=== PATIENT | male | born 1950 | race Hispanic/Latino ===

== ENCOUNTER 2018-05-15 11:43 | Inpatient (IN) | payer MEDICARE ==
[2018-05-15 11:43] VITALS: BMI 25.7
--- NOTE | 2018-05-15 11:58 | C.PDOC ---
History Of Present Illness 67 y/o male,w/PMhx of HTN and diabetes, brought to ER by ambulance for brief syncopal episode which occurred today. Patient states that he was waiting with other people in the sun outside his doctor's office. Patient reports that he experienced photophobia and he put on his shades. He notes that he began feeling dizzy and he kneeled down on one knee. He thinks he may have blacked out for few seconds. Afterwards,he was picked up by EMS and brought to the ER. he notes that he has mild abdominal pain and diarrhea. Denies having fever, chills, headache, dizziness, neck pain, CP, and SOB. 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 He is taking abx and he applies daily dressings. Time Seen by Provider: 05/15/18 11:54 Chief Complaint (Nursing): Syncope History Per: Patient History/Exam Limitations: no limitations Onset/Duration Of Symptoms: Hrs Current Symptoms Are (Timing): Gone Severity: Moderate Past Medical History Reviewed: Historical Data, Nursing Documentation, Vital Signs Vital Signs: Last Vital Signs Temp Pulse Resp BP 129/72 05/15/18 11:49 Pulse Ox 98 05/15/18 11:49 - Medical History PMH: Anxiety, Depression Denies: COPD (DENIES 05/15/18), HTN (DENIES 05/15/18), Chronic Kidney Disease Other Surgeries: Hx of surgeries - [facility] Procedures ANGIOPLASTY OF OTHER NON-CORONARY VESSEL(S) (11/28/14) PROCEDURE ON SINGLE VESSEL (11/28/14) Family History: States: No Known Family Hx - Social History Hx Tobacco Use: No Hx Alcohol Use: No Hx Substance Use: No - Immunization History Hx Tetanus Toxoid Vaccination: No Hx Influenza Vaccination: No Hx Pneumococcal Vaccination: No Review Of Systems Except As Marked, All Systems Reviewed And Found Negative. Constitutional: Negative for: Fever, Chills Cardiovascular: Negative for: Chest Pain Respiratory: Negative for: Shortness of Breath Gastrointestinal: Positive for: Abdominal Pain, Diarrhea. Negative for: Nausea, Vomiting Musculoskeletal: Negative for: Neck Pain Neurological: Positive for: Dizziness (currently resolved). Negative for: Headache Physical Exam - Physical Exam Appears: Non-toxic, No Acute Distress, Other (awake,alert,cooperative, conversational) Skin: Normal Color, Warm, Dry Head: Atraumatic, Normacephalic Eye(s): bilateral: Normal Inspection Nose: Normal Oral Mucosa: Dry (mildly dry) Throat: Normal, No Erythema, No Exudate Neck: Supple Chest: Symmetrical Cardiovascular: Rhythm Regular Respiratory: Normal Breath Sounds, No Rales, No Rhonchi, No Wheezing Gastrointestinal/Abdominal: Soft, Tenderness (diffuse tenderness), No Guarding, No Rebound Extremity: Normal ROM, Other (no pitting edema,right foot wrapped in dressing) Neurological/Psych: Oriented x3, Normal Speech, Normal Cranial Nerves (1-12 intact), Normal Motor, Normal Sensation ED Course And Treatment - Laboratory Results Result Diagrams: 05/15/18 13:01 05/15/18 13:01 ECG: Interpreted By Me, Viewed By Me Interpretation Of ECG: Sinus Bradycardia with incomplete RBBB Rate From EC O2 Sat by Pulse Oximetry: 98 (RA) Pulse Ox Interpretation: Normal Medical Decision Making Medical Decision Making: Plan: --Labs --EKG --CT-Head Updates: 14:10 Case discussed with patient's PMD . requested for patient to be admitted under Dr.Deepak Spears. Case discussed with who stated that he does not want patient to be admitted under his service. states that he can be put on consult. Case discussed with Dr.J Macedo.Dr. Jovan Macedo accepted the admission. Disposition Discussed With .: Sue Macedo - Disposition Disposition: HOSPITALIZED Disposition Time: 14:13 Condition: GUARDED - Clinical Impression Clinical Impression: Dizziness, Syncope - Scribe Statement The provider has reviewed the documentation as recorded by the Jean Orozco Provider Attestation: All medical record entries made by the Arleenibsalty were at my direction and personally dictated by me. I have reviewed the chart and agree that the record accurately reflects my personal performance of the history, physical exam, medical decision making, and the department course for this patient. I have also personally directed, reviewed, and agree with the discharge instructions and disposition. Decision To Admit - Pt Status Changed To: Hospital Disposition Of: Observation - . Bed Request Type: Telemetry Admitting Physician: Sue Macedo Patient Diagnosis: Dizziness, Syncope
[2018-05-15 13:09] LABS: BASO # 0.1 K/uL (0.0-0.2); BASO % 0.6 % (0.0-2.0); EOS # 0.1 K/uL (0.0-0.7); EOS % 1.6 % (0.0-4.0); HEMOGLOBIN 14.7 g/dL (12.0-18.0); LYMPH # 1.6 K/uL (1.0-4.3); LYMPH % 19.2 % (20.0-40.0); MEAN CELL VOLUME 89.4 fL (80.0-94.0); MEAN CORPUSCULAR HEMOGLOBIN 30.8 pg (27.0-31.0); MEAN CORPUSCULAR HGB CONC 34.4 g/dL (33.0-37.0); MEAN PLATELET VOLUME 9.1 fL (7.2-11.7); MONO # 0.6 K/uL (0.0-0.8); MONO % 7.1 % (0.0-10.0); NEUT # 6.1 K/uL (1.8-7.0); NEUT % 71.5 % (50.0-75.0); RBC 4.78 Mil/uL (4.40-5.90); RED CELL DISTRIBUTION WIDTH 13.4 % (11.5-14.5); WHITE BLOOD COUNT 8.6 K/uL (4.8-10.8)
[2018-05-15 13:30] LABS: ALB/GLOB RATIO 1.8 (1.0-2.1); ALBUMIN 4.3 g/dL (3.5-5.0); ALT/SGPT 20 U/L (21-72); AST/SGOT 24 U/L (17-59); BLOOD UREA NITROGEN 15 mg/dL (9-20); CALCIUM 9.2 mg/dl (8.6-10.4); GFR NON-AFRICAN AMERICAN > 60
[2018-05-15 13:40] LABS: CK-MB 1.15 ng/mL (0.0-3.38)
--- NOTE | 2018-05-15 16:35 | CT ---
Date of service: 05/15/2018 PROCEDURE: CT HEAD WITHOUT CONTRAST. HISTORY: R/O Bleed COMPARISON: None available. TECHNIQUE: Axial computed tomography images were obtained through the head/brain without intravenous contrast. Radiation dose: Total exam DLP = 1143.86 mGy-cm. This CT exam was performed using one or more of the following dose reduction techniques: Automated exposure control, adjustment of the mA and/or kV according to patient size, and/or use of iterative reconstruction technique. FINDINGS: HEMORRHAGE: No intracranial hemorrhage. BRAIN: Diffuse atrophy with prominence of the ventricles and sulci noted. no mass effect or edema. Intracranial atherosclerosis. Painting-white matter differentiation appears intact. Please note that MRI with diffusion imaging is more sensitive in the detection of acute ischemic event. VENTRICLES: No hydrocephalus. CALVARIUM: Unremarkable. PARANASAL SINUSES: Unremarkable as visualized. No significant inflammatory changes. MASTOID AIR CELLS: Unremarkable as visualized. No inflammatory changes. 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 IMPRESSION: No acute intracranial pathology identified. Additional findings as above.
--- NOTE | 2018-05-15 17:09 | CP.PCM.CON ---
History of Present Illness - History of Present Illness History of Present Illness: Podiatry Consult note: Dr. Amador 67 year old male with PMHx of HTN, DM was seen and evaluated at [facility] for right foot chronic ulceration. Patient states that he was brought in by an ambulance for a breif syncopal episode which occured at his primary care doctor's office Patient states that he also has a small ulcer on the right foot. States that he has been following up with Dr. Lipscomb at [place]. States that he was given Ciprofloxacin recently which he completed on Tuesday. Patient denies of having any pain to the right foot. Reports that his niece has been changing the dressing on the foot with santyl. Denies of having any recent F/N/V/C/SOB/CP/headache. No other pedal complains at this time. PMHx: HTN, DM PSHx: Angioplasty, Right foot 3rd digit amputation Allergies: Seasonal, NKDA SHx: Denies smoking, EtOH or illicit drug usage Review of Systems - Constitutional Constitutional: As Per HPI Past Patient History - Infectious Disease Hx of Infectious Diseases: None - Past Medical History & Family History Past Medical History?: Yes - Past Social History Smoking Status: Former Smoker - CARDIAC Hx Hypertension: No (DENIES 05/15/18) - PULMONARY Hx Chronic Obstructive Pulmonary Disease (COPD): No (DENIES 05/15/18) - NEUROLOGICAL Hx Neurological Disorder: No - HEENT Hx HEENT Problems: Yes Hx Blind: Yes (R eye d/t trauma in 1976) Hx Glaucoma: Yes (L eye) - RENAL Hx Chronic Kidney Disease: No - ENDOCRINE/METABOLIC Hx Endocrine Disorders: No - HEMATOLOGICAL/ONCOLOGICAL Hx Blood Disorders: No - INTEGUMENTARY Hx Dermatological Problems: No - MUSCULOSKELETAL/RHEUMATOLOGICAL Hx Musculoskeletal Disorders: Yes (chronic neck pain) Hx Falls: Yes - GASTROINTESTINAL Hx Gastrointestinal Disorders: No - GENITOURINARY/GYNECOLOGICAL Hx Genitourinary Disorders: No - PSYCHIATRIC Hx Anxiety: Yes Hx Depression: Yes Hx Substance Use: No - SURGICAL HISTORY Hx Surgeries: Yes Hx Amputation: Yes (3rd toe of R foot) - ANESTHESIA Hx Anesthesia: Yes Hx Anesthesia Reactions: No Hx Malignant Hyperthermia: No Meds Allergies/Adverse Reactions: Allergies Allergy/AdvReac Type Severity Reaction Status Date / Time barley Allergy Verified 05/15/18 11:48 milk Allergy Verified 05/15/18 11:48 Physical Exam - Constitutional Appears: Well, Non-toxic, No Acute Distress - Extremities Exam Additional comments: VASC: DP pulses are faintly palpable, PT pulses are 1/4, Cap refill time: < 3 sec to all digits, Temp gradient: warm to cool from proximal to distal on the left and warm to warm on the left, no pitting or non-pitting edema noted DERM: 2 small open lesions measuring approx 0.7 cm x 0.3 cm x 0.1 cm on the anterior medial aspect of the right ankle superior to anterior tibial tendon, wound base is necro-grannular, no active drainage, no malodor, no tunneling, no undermining, diffuse erythema noted on the right foot, superficial hallux epidermal shedding with superficial bleeding NEURO: Protective sensation grossly intact ORTHO: MMT: 5/5 in all 4 direction, no pain on palpation of the wound on the right foot - Neurological Exam Neurological exam: Alert, Oriented x3 - Psychiatric Exam Psychiatric exam: Normal Affect, Normal Mood Results - Vital Signs Recent Vital Signs: Last Vital Signs Temp 87.6 F L 05/15/18 15:34 Pulse 90 05/15/18 15:34 Resp 20 05/15/18 15:34 BP 164/83 H 05/15/18 15:34 Pulse Ox 98 05/15/18 15:34 - Labs Result Diagrams: 05/15/18 13:01 05/15/18 13:01 Labs: Laboratory Results - last 24 hr 05/15/18 05/15/18 05/15/18 11:46 13:01 13:01 WBC 8.6 RBC 4.78 Hgb 14.7 D Hct 42.7 MCV 89.4 MCH 30.8 MCHC 34.4 RDW 13.4 Plt Count 205 MPV 9.1 Neut % (Auto) 71.5 Lymph % (Auto) 19.2 L [place] % (Auto) 7.1 Eos % (Auto) 1.6 Baso % (Auto) 0.6 Neut # (Auto) 6.1 Lymph # (Auto) 1.6 [place] # (Auto) 0.6 Eos # (Auto) 0.1 Baso # (Auto) 0.1 Sodium 140 Potassium 4.2 Chloride 105 Carbon Dioxide 26 Anion Gap 13 BUN 15 Creatinine 0.9 Est GFR ( Amer) > 60 Est GFR (Non-Af Amer) > 60 POC Glucose (mg/dL) 160 H Random Glucose 121 H D Calcium 9.2 Total Bilirubin 0.9 AST 24 ALT 20 L D Alkaline Phosphatase 117 Total Creatine Kinase 48 L CK-MB (Mass) 1.15 Troponin I < 0.0120 Total Protein 6.8 Albumin 4.3 Globulin 2.4 Albumin/Globulin Ratio 1.8 Influenza Typ A,B (EIA) 05/15/18 13:59 WBC RBC Hgb Hct MCV MCH MCHC RDW Plt Count MPV Neut % (Auto) Lymph % (Auto) [place] % (Auto) Eos % (Auto) Baso % (Auto) Neut # (Auto) Lymph # (Auto) [place] # (Auto) Eos # (Auto) Baso # (Auto) Sodium Potassium Chloride Carbon Dioxide Anion Gap BUN Creatinine Est GFR ( Amer) Est GFR (Non-Af Amer) POC Glucose (mg/dL) Random Glucose Calcium Total Bilirubin AST ALT Alkaline Phosphatase Total Creatine Kinase CK-MB (Mass) Troponin I Total Protein Albumin Globulin Albumin/Globulin Ratio Influenza Typ A,B (EIA) Negative for flu a/b Assessment & Plan - Assessment and Plan (Free Text) Assessment: 67 year old male with PMHx of HTN, DM was evaluated for right foot chronic ulceration Plan: Patient seen and evaluated Discussed plan with attending Dr. Amador No leukocytosis Foot x-rays ordered Right foot cultures taken - pending KAITY/PVR ordered - pending Wound cleaned and dressing applied using betadine, DSD Continue abx as per primary Thank you for the podiatry consult and allowing to take part in patient care Podiatry to follow patient while in-house - Date & Time Date: 05/15/18 Time: 17:19
--- NOTE | 2018-05-15 19:12 | CP.PCM.HP ---
Past Patient History - Infectious Disease Hx of Infectious Diseases: None - Past Medical History & Family History Past Medical History?: Yes - Past Social History Smoking Status: Former Smoker - CARDIAC Hx Hypertension: No (DENIES 05/15/18) - PULMONARY Hx Chronic Obstructive Pulmonary Disease (COPD): No (DENIES 05/15/18) - NEUROLOGICAL Hx Neurological Disorder: No - HEENT Hx HEENT Problems: Yes Hx Blind: Yes (R eye d/t trauma in 1976) Hx Glaucoma: Yes (L eye) - RENAL Hx Chronic Kidney Disease: No - ENDOCRINE/METABOLIC Hx Endocrine Disorders: No - HEMATOLOGICAL/ONCOLOGICAL Hx Blood Disorders: No - INTEGUMENTARY Hx Dermatological Problems: No - MUSCULOSKELETAL/RHEUMATOLOGICAL Hx Musculoskeletal Disorders: Yes (chronic neck pain) Hx Falls: Yes - GASTROINTESTINAL Hx Gastrointestinal Disorders: No - GENITOURINARY/GYNECOLOGICAL Hx Genitourinary Disorders: No - PSYCHIATRIC Hx Anxiety: Yes Hx Depression: Yes Hx Substance Use: No - SURGICAL HISTORY Hx Surgeries: Yes Hx Amputation: Yes (3rd toe of R foot) - ANESTHESIA Hx Anesthesia: Yes Hx Anesthesia Reactions: No Hx Malignant Hyperthermia: No Meds Allergies/Adverse Reactions: Allergies Allergy/AdvReac Type Severity Reaction Status Date / Time barley Allergy Verified 05/15/18 11:48 milk Allergy Verified 05/15/18 11:48 Physical Exam - Constitutional Appears: Well - Head Exam Head Exam: ATRAUMATIC, NORMAL INSPECTION, NORMOCEPHALIC - Eye Exam Eye Exam: EOMI, Normal appearance, PERRL Pupil Exam: NORMAL ACCOMODATION, PERRL - ENT Exam ENT Exam: Mucous Membranes Moist, Normal Exam - Neck Exam Neck exam: Positive for: Normal Inspection - Respiratory Exam Respiratory Exam: Decreased Breath Sounds - Cardiovascular Exam Cardiovascular Exam: REGULAR RHYTHM, +S1, +S2 - GI/Abdominal Exam GI & Abdominal Exam: Diminished Bowel Sounds, Soft - Rectal Exam Rectal Exam: Deferred Results - Vital Signs Recent Vital Signs: Last Vital Signs Temp 87.6 F L 05/15/18 15:34 Pulse 90 05/15/18 15:34 Resp 20 05/15/18 15:34 BP 164/83 H 05/15/18 15:34 Pulse Ox 98 05/15/18 15:34 - Labs Result Diagrams: 05/15/18 13:01 05/15/18 13:01 Labs: Laboratory Results - last 24 hr 05/15/18 05/15/1805/15/19 11:46 13:01 13:01 WBC 8.6 RBC 4.78 Hgb 14.7 D Hct 42.7 MCV 89.4 MCH 30.8 MCHC 34.4 RDW 13.4 Plt Count 205 MPV 9.1 Neut % (Auto) 71.5 Lymph % (Auto) 19.2 L [place] % (Auto) 7.1 Eos % (Auto) 1.6 Baso % (Auto) 0.6 Neut # (Auto) 6.1 Lymph # (Auto) 1.6 [place] # (Auto) 0.6 Eos # (Auto) 0.1 Baso # (Auto) 0.1 Sodium 140 Potassium 4.2 Chloride 105 Carbon Dioxide 26 Anion Gap 13 BUN 15 Creatinine 0.9 Est GFR ( Amer) > 60 Est GFR (Non-Af Amer) > 60 POC Glucose (mg/dL) 160 H Random Glucose 121 H D Calcium 9.2 Total Bilirubin 0.9 AST 24 ALT 20 L D Alkaline Phosphatase 117 Total Creatine Kinase 48 L CK-MB (Mass) 1.15 Troponin I < 0.0120 Total Protein 6.8 Albumin 4.3 Globulin 2.4 Albumin/Globulin Ratio 1.8 Influenza Typ A,B (EIA) 05/15/18 05/15/18 13:59 17:09 WBC RBC Hgb Hct MCV MCH MCHC RDW Plt Count MPV Neut % (Auto) Lymph % (Auto) [place] % (Auto) Eos % (Auto) Baso % (Auto) Neut # (Auto) Lymph # (Auto) [place] # (Auto) Eos # (Auto) Baso # (Auto) Sodium Potassium Chloride Carbon Dioxide Anion Gap BUN Creatinine Est GFR ( Amer) Est GFR (Non-Af Amer) POC Glucose (mg/dL) 136 H Random Glucose Calcium Total Bilirubin AST ALT Alkaline Phosphatase Total Creatine Kinase CK-MB (Mass) Troponin I Total Protein Albumin Globulin Albumin/Globulin Ratio Influenza Typ A,B (EIA) Negative for flu a/b
[2018-05-15 20:24] LABS: CK-MB 1.14 ng/mL (0.0-3.38)
[2018-05-15] MEDS ORDERED: Latanoprost 2.5 ml Opht Soln OS SCH (22:00)
[2018-05-15] MEDS: Piperacillin/Tazobact 3.375 GM in Sodium Chloride 100 ML IVPB SCH (22:17)
[2018-05-15] MEDS ORDERED: Glucagon Recombinant 1 mg Inj IM PRN (23:40)
[2018-05-15] MEDS ORDERED: Dextrose 50% SYRINGE Inj (50 ml) IV PRN (23:40)
[2018-05-16] MEDS: Piperacillin/Tazobact 3.375 GM in Sodium Chloride 100 ML IVPB SCH ×3 (05:22→22:03)
[2018-05-16 07:01] LABS: CK-MB 1.09 ng/mL (0.0-3.38)
--- NOTE | 2018-05-16 07:14 | CP.PCM.CON ---
History of Present Illness - History of Present Illness History of Present Illness: CONSULTATION DICTATED RECURRENT SYNCOPE EEG/MRI PT CARDIO TO SEE FOR CARDIAC CAUSE Past Patient History - Infectious Disease Hx of Infectious Diseases: None - Past Medical History & Family History Past Medical History?: Yes - Past Social History Smoking Status: Former Smoker - CARDIAC Hx Hypertension: No (DENIES 05/15/18) - PULMONARY Hx Chronic Obstructive Pulmonary Disease (COPD): No (DENIES 05/15/18) - NEUROLOGICAL Hx Neurological Disorder: No - HEENT Hx HEENT Problems: Yes Hx Blind: Yes (R eye d/t trauma in 1976) Hx Glaucoma: Yes (L eye) - RENAL Hx Chronic Kidney Disease: No - ENDOCRINE/METABOLIC Hx Endocrine Disorders: No - HEMATOLOGICAL/ONCOLOGICAL Hx Blood Disorders: No - INTEGUMENTARY Hx Dermatological Problems: No - MUSCULOSKELETAL/RHEUMATOLOGICAL Hx Musculoskeletal Disorders: Yes (chronic neck pain) Hx Falls: Yes - GASTROINTESTINAL Hx Gastrointestinal Disorders: No - GENITOURINARY/GYNECOLOGICAL Hx Genitourinary Disorders: No - PSYCHIATRIC Hx Anxiety: Yes Hx Depression: Yes Hx Substance Use: No - SURGICAL HISTORY Hx Surgeries: Yes Hx Amputation: Yes (3rd toe of R foot) - ANESTHESIA Hx Anesthesia: Yes Hx Anesthesia Reactions: No Hx Malignant Hyperthermia: No Meds Allergies/Adverse Reactions: Allergies Allergy/AdvReac Type Severity Reaction Status Date / Time barley Allergy Verified 05/15/18 11:48 milk Allergy Verified 05/15/18 11:48 - Medications Medications: Current Medications Alprazolam (Xanax) 1 mg PO BID PRN PRN Reason: Anxiety Aspirin (Ecotrin) 81 mg PO DAILY GORDON Ciprofloxacin (Cipro) 500 mg PO BID GORDON; Protocol Dextrose (Dextrose 50% Inj) 0 ml IV STAT PRN; Protocol PRN Reason: Hypoglycemia Protocol Dextrose (Glutose 15) 0 gm PO ONCE PRN; Protocol PRN Reason: Hypoglycemia Protocol Enoxaparin Sodium (Lovenox) 40 mg SC DAILY GORDON Glucagon (Glucagen Diagnostic Kit) 0 mg IM STAT PRN; Protocol PRN Reason: Hypoglycemia Protocol Piperacillin Sod/Tazobactam (Sod 3.375 gm/ Sodium Chloride) 100 mls @ 200 mls/hr IVPB Q8H GORDON; Protocol Last Admin: 05/16/18 05:22 Dose: 200 mls/hr Dextrose (Dextrose 5% In Water 1000 Ml) 1,000 mls @ 0 mls/hr IV .Q0M PRN; Protocol PRN Reason: Hypoglycemia Protocol Insulin Aspart (Novolog) 0 unit SC ACHS GORDON; Protocol Latanoprost (Xalatan Opht) 0 ml OS HS GORDON Last Admin: 05/15/18 22:17 Dose: 2.5 ml Metformin HCl (Glucophage) 500 mg PO BID GORDON Methylprednisolone (Medrol) 4 mg PO BID GORDON Tamsulosin HCl (Flomax) 0.8 mg PO HS GORDON Last Admin: 05/15/18 22:16 Dose: 0.8 mg Results - Vital Signs Recent Vital Signs: Last Vital Signs Temp 97.5 F L 05/16/18 05:21 Pulse 71 05/16/18 05:21 Resp 20 05/16/18 05:21 BP 156/81 H 05/16/18 05:21 Pulse Ox 99 05/16/18 05:21 - Labs Result Diagrams: 05/15/18 13:01 05/15/18 13:01 Labs: Laboratory Results - last 24 hr 05/15/18 05/15/18 05/15/18 11:46 13:01 13:01 WBC 8.6 RBC 4.78 Hgb 14.7 D Hct 42.7 MCV 89.4 MCH 30.8 MCHC 34.4 RDW 13.4 Plt Count 205 MPV 9.1 Neut % (Auto) 71.5 Lymph % (Auto) 19.2 L [place] % (Auto) 7.1 Eos % (Auto) 1.6 Baso % (Auto) 0.6 Neut # (Auto) 6.1 Lymph # (Auto) 1.6 [place] # (Auto) 0.6 Eos # (Auto) 0.1 Baso # (Auto) 0.1 Sodium 140 Potassium 4.2 Chloride 105 Carbon Dioxide 26 Anion Gap 13 BUN 15 Creatinine 0.9 Est GFR ( Amer) > 60 Est GFR (Non-Af Amer) > 60 POC Glucose (mg/dL) 160 H Random Glucose 121 H D Calcium 9.2 Total Bilirubin 0.9 AST 24 ALT 20 L D Alkaline Phosphatase 117 Total Creatine Kinase 48 L CK-MB (Mass) 1.15 Troponin I < 0.0120 Total Protein 6.8 Albumin 4.3 Globulin 2.4 Albumin/Globulin Ratio 1.8 Influenza Typ A,B (EIA) 05/15/18 05/15/18 05/15/18 13:59 17:09 19:40 WBC RBC Hgb Hct MCV MCH MCHC RDW Plt Count MPV Neut % (Auto) Lymph % (Auto) [place] % (Auto) Eos % (Auto) Baso % (Auto) Neut # (Auto) Lymph # (Auto) [place] # (Auto) Eos # (Auto) Baso # (Auto) Sodium Potassium Chloride Carbon Dioxide Anion Gap BUN Creatinine Est GFR ( Amer) Est GFR (Non-Af Amer) POC Glucose (mg/dL) 136 H Random Glucose Calcium Total Bilirubin AST ALT Alkaline Phosphatase Total Creatine Kinase 48 L CK-MB (Mass) 1.14 Troponin I < 0.0120 Total Protein Albumin Globulin Albumin/Globulin Ratio Influenza Typ A,B (EIA) Negative for flu a/b 05/15/18 05/16/18 21:07 06:24 WBC RBC Hgb Hct MCV MCH MCHC RDW Plt Count MPV Neut % (Auto) Lymph % (Auto) [place] % (Auto) Eos % (Auto) Baso % (Auto) Neut # (Auto) Lymph # (Auto) [place] # (Auto) Eos # (Auto) Baso # (Auto) Sodium Potassium Chloride Carbon Dioxide Anion Gap BUN Creatinine Est GFR ( Amer) Est GFR (Non-Af Amer) POC Glucose (mg/dL) 156 H Random Glucose Calcium Total Bilirubin AST ALT Alkaline Phosphatase Total Creatine Kinase 41 L CK-MB (Mass) 1.09 Troponin I < 0.0120 Total Protein Albumin Globulin Albumin/Globulin Ratio Influenza Typ A,B (EIA)
[2018-05-16] MEDS: (Novolog) Insulin Aspart, Recombinant 100 u/ml 10 ml vial SC SCH ×4 (07:49→21:13)
--- NOTE | 2018-05-16 08:54 | CON ---
DATE: 05/16/2018 TIME OF EVALUATION: 07:05 a.m. NEUROLOGICAL PROBLEM: Syncopal attack. CHIEF COMPLAINT: The patient was brought into [facility] following a syncopal attack in the front of the doctor's office. From neurological point of view, I was called into evaluate him for further management. HISTORY OF PRESENT ILLNESS: Mr. Sean Galicia is a 67-year-old right-handed male presenting with three episodes of syncopal attack which one was happened in , been admitted in the medical center and worked up, all workup negative. The second attack 3 years ago while he was playing bill with high temperatures he passed out. He was admitted in [facility] and been worked up and he was sent home. This time while he was waiting for the door to open to see the doctor, about 15 minutes standing outside of the doctor's office and following opening the door and trying to get into the office, he felt lightheaded and fell on the right side. He seems he felt lost his consciousness. No bowel and bladder incontinence. No seizure activities at the scene. The patient called 911 and he was transferred to [facility] for further evaluation. Following this fall, the patient did not have any focal neurological deficit, weakness, visual or bulbar dysfunction. 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 PAST MEDICAL HISTORY: Diabetes mellitus, prostate hypertrophy, anxiety disorder. PERSONAL HISTORY: Denies smoking and alcohol at present, he quit years ago due to his medical problem and medication. REVIEW OF SYSTEMS: 12-point system being reviewed from neuro, syncopal attack. MEDICATIONS: Cipro, aspirin, Flomax, metformin, Lovenox, Medrol, insulin, alprazolam. PHYSICAL EXAMINATION: VITAL SIGNS: Blood pressure 156/81, mean artery pressure of 106, respiratory rate 18, temperature 97.5. NECK: Supple. No carotid bruits. HEART: Sounds regular. CHEST: Fair air entry. EXTREMITIES: No edema in legs. NEUROLOGIC: Mental status examination, he is awake, alert and oriented to person, place and time. No antegrade amnesia and retrograde amnesia present. No hallucination. No suicidal ideation. Cranial nerve examination, right eye traumatic post-traumatic blindness. Extraocular movement markedly decreased. No facial sensory deficit. Significant facial asymmetry noted. Tongue is midline. Hard in hearing on both the ears. Motor examination, outstretched hand with eyes closed, no drift noted. Power is symmetric on either side. He could able to lift both lower extremities against the gravity. Deep tendon reflexes absent throughout. Plantars are upgoing on both sides. Visual examination also showed evidence of possible right homonymous hemianopsia, may be interfering with his blindness as well. Gait is deferred at this time because of his clinical presentation. CONCLUSION: As per neurological examination, on reviewing his history, the patient did have recurrent syncopal attack. From neurologic point of view, vertebrobasilar insufficiency, maybe seizures should be ruled out. However, cardiac point of view, cardiac arrhythmias or ischemic process should be ruled out. 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 His workup CT of the head reviewed, no acute pathology is noted. Blood workup, WBC 8.6, hemoglobin 14.7, hematocrit 42.7. Sodium 140, potassium 4.2, chloride 105, bicarbonate 26, glucose 156, calcium 9.2. RECOMMENDATIONS: 1. The patient should have MRI of the brain to rule out any ischemic process. 2. The patient can continue aspirin for now. 3. Electroencephalogram and echocardiogram and carotid Doppler should be done. The patient will be followed while he is in the hospital. Doc García MD
--- NOTE | 2018-05-16 10:41 | MRI ---
Date of service: 05/16/2018 PROCEDURE: MRI BRAIN WITHOUT CONTRAST HISTORY: [employer] COMPARISON: None available. TECHNIQUE: Multiplanar, multisequence MR images of the brain were obtained without intravenous contrast enhancement. FINDINGS: HEMORRHAGE: None DWI: No evidence of an acute or early subacute infarction. BRAIN PARENCHYMA: The marcus-white matter differentiation is well preserved. There is no mass effect or definitive edema pattern appreciated including the cortex. There is proportional expansion of the ventriculosulcal and cisternal spaces however in a pattern most compatible with diffuse cerebral atrophy. No suspicious extra-axial fluid collection is identified in the midline brain anatomy appears grossly nonfocal as imaged. VENTRICLES: Unremarkable. No hydrocephalus. CRANIUM: Unremarkable. ORBITS: Grossly unremarkable. PARANASAL SINUSES/MASTOIDS: Clear VASCULAR SYSTEM: Skull base flow voids intact. OTHER FINDINGS: None. IMPRESSION: Limited age-related neuro degenerative change are identified which are age-appropriate. No acute or subacute brain infarction appreciated. No mass effect.
[2018-05-16] MEDS: Enoxaparin 40 mg Syringe SC SCH ×2 (10:49→12:05)
--- NOTE | 2018-05-16 14:10 | VASCLAB ---
Date of service: 05/16/2018 PROCEDURE: Carotid Duplex Exam. HISTORY: Syncope COMPARISON: None available. TECHNIQUE: Grayscale and duplex Doppler evaluation of the cervical carotid and vertebral arteries were performed. The common carotid, carotid bifurcations and cervical Internal Carotid Artery (ICA) and proximal External Carotid Artery (ECA) were evaluated. The vertebral arteries were evaluated for gross patency and flow direction. Report prepared by Trevor Peters, BS, RVT FINDINGS: RIGHT CAROTID ARTERIES: 1. Common Carotid Artery: No significant focal plaque formation of the right common carotid artery. Maximum Peak Systolic velocity: 92 cm/sec: End-diastolic velocity 18 cm/sec. 2. Carotid Bifurcation: plaque formation. Maximum Peak Systolic velocity: 77 cm/sec: End-diastolic velocity 16 cm/sec. 3. Internal Carotid Artery: Plaque description: 3.1. Proximal Segment: Peak systolic velocity 87 cm/sec: End-diastolic velocity 20 cm/sec - % stenosis 0-15% 3.2. Middle Segment: Peak systolic velocity 92 cm/sec: End-diastolic velocity 23 cm/sec - % stenosis 0-15% 3.3. Distal Segment: Peak systolic velocity 88 cm/sec: End-diastolic velocity 23 cm/sec - % stenosis 0-15% 4. External Carotid Artery: No significant focal plaque formation. Peak systolic velocity 123 cm/sec 5. ICA/CCA Ratio: 1.0 LEFT CAROTID ARTERIES: 1. Common Carotid Artery: No significant focal plaque formation of the left common carotid artery. Maximum Peak Systolic velocity: 86 cm/sec: End-diastolic velocity 15 cm/sec. 2. Carotid Bifurcation: plaque formation. Maximum Peak Systolic velocity: 102 cm/sec: End-diastolic velocity 9 cm/sec. 3. Internal Carotid Artery: Plaque description: 3.1. Proximal Segment: Peak systolic velocity 104 cm/sec: End-diastolic velocity 22 cm/sec - % stenosis 0-15% 3.2. Middle Segment: Peak systolic velocity 115 cm/sec: End-diastolic velocity 32 cm/sec - % stenosis 0-15% 3.3. Distal Segment: Peak systolic velocity 106 cm/sec: End-diastolic velocity 27 cm/sec - % stenosis 0-15% 4. External Carotid Artery: No significant focal plaque formation. Peak systolic velocity 141 cm/sec 5. ICA/CCA Ratio: 1.3 VERTEBRAL ARTERIES: 1. Right Vertebral Artery: The right vertebral artery flow direction is antegrade. 2. Left Vertebral Artery: The left vertebral artery flow direction is antegrade. OTHER FINDINGS: 1. Right Brachial Blood pressure: 177 mmHg. 2. Left Brachial Blood pressure: 180 mmHg. 3. No atherosclerotic calcification present IMPRESSION: RIGHT: Duplex scan does not suggest hemodynamically significant stenosis of the right extracranial carotid arteries. LEFT: Duplex scan does not suggest hemodynamically significant stenosis of the left extracranial carotid arteries.
--- NOTE | 2018-05-16 14:11 | VASCLAB ---
Date of service: 05/16/2018 STUDY DESCRIPTION: Lower Extremity Arterial Exam (PVR). HISTORY: poor bilateral foot pulses PRIORS: None. TECHNIQUE: Pulse volume recording waveforms and segmental pressures of bilateral lower extremities at multiple levels were obtained. Ankle Brachial Indices (ABIs) were calculated. Report prepared by SERENITY Nuñez, RVT RIGHT LOWER EXTREMITY: * Brachial artery: Pressure - 177 mmHg. * High thigh: Pressure - 220 mmHg: Ratio - NC: PVR waveform - Pulsatile * Low thigh: Pressure - 220 mmHg: Ratio - NC PVR waveform: Pulsatile * Calf: Pressure - 220 mmHg: Ratio - NC PVR waveform: Pulsatile * Posterior tibial Artery: Pressure - 220 mmHg: Ratio - NC PVR waveform: Pulsatile * Dorsalis pedis Artery: Pressure - 220 mmHg: Ratio - NC PVR waveform: Pulsatile * Great toe: Pressure - mmHg: Ratio - PVR waveform: Ankle brachial index (KAITY): NC LEFT LOWER EXTREMITY: * Brachial artery: Pressure - 180 mmHg. * High thigh: Pressure - 220 mmHg: Ratio - NC: PVR waveform - Pulsatile * Low thigh: Pressure - 220 mmHg: Ratio - NC PVR waveform: Pulsatile * Calf: Pressure - 220 mmHg: Ratio - NC PVR waveform: Pulsatile * Posterior tibial Artery: Pressure - 220 mmHg: Ratio - NC PVR waveform: Pulsatile * Dorsalis pedis Artery: Pressure - 220 mmHg: Ratio - NC PVR waveform: Pulsatile * Great toe: Pressure - mmHg: Ratio - PVR waveform: Ankle brachial index (KAITY): NC OTHER FINDINGS: Right: Left: IMPRESSION: Right: The ankle pressure index of the right lower extremity is non-diagnostic due to possible arterial wall calcifications. Left: The ankle pressure index of the left lower extremity is non-diagnostic due to possible arterial wall calcifications.
--- NOTE | 2018-05-16 14:56 | CP.PCM.PN ---
Subjective - Date & Time of Evaluation Date of Evaluation: 05/16/18 Time of Evaluation: 12:00 - Subjective Subjective: clinically same Objective - Vital Signs/Intake and Output Vital Signs (last 24 hours): Temp Pulse Resp BP Pulse Ox 97.8 F 60 20 169/75 H 96 05/16/18 07:00 05/16/18 07:42 05/16/18 07:00 05/16/18 07:00 05/16/18 09:00 Intake and Output: 05/16/18 05/16/18 06:59 18:59 Output Total 300 Balance -300 - Medications Medications: Current Medications Alprazolam (Xanax) 1 mg PO BID PRN PRN Reason: Anxiety Aspirin (Ecotrin) 81 mg PO DAILY [facility] Last Admin: 05/16/18 12:06 Dose: 81 mg Cilostazol (Pletal) 50 mg PO BID [facility] Ciprofloxacin (Cipro) 500 mg PO BID [facility]; Protocol Last Admin: 05/16/18 12:04 Dose: 500 mg Dextrose (Dextrose 50% Inj) 0 ml IV STAT PRN; Protocol PRN Reason: Hypoglycemia Protocol Dextrose (Glutose 15) 0 gm PO ONCE PRN; Protocol PRN Reason: Hypoglycemia Protocol Enoxaparin Sodium (Lovenox) 40 mg SC DAILY [facility] Last Admin: 05/16/18 12:05 Dose: 40 mg Glucagon (Glucagen Diagnostic Kit) 0 mg IM STAT PRN; Protocol PRN Reason: Hypoglycemia Protocol Piperacillin Sod/Tazobactam (Sod 3.375 gm/ Sodium Chloride) 100 mls @ 200 mls/hr IVPB Q8H [facility]; Protocol Last Admin: 05/16/18 14:47 Dose: 200 mls/hr Dextrose (Dextrose 5% In Water 1000 Ml) 1,000 mls @ 0 mls/hr IV .Q0M PRN; Protocol PRN Reason: Hypoglycemia Protocol Insulin Aspart (Novolog) 0 unit SC ACHS [facility]; Protocol Last Admin: 05/16/18 12:04 Dose: Not Given Latanoprost (Xalatan Opht) 0 ml OS Q24H [facility] Metformin HCl (Glucophage) 500 mg PO BID [facility] Last Admin: 05/16/18 12:04 Dose: 500 mg Methylprednisolone (Medrol) 4 mg PO QWK [facility] Methylprednisolone (Medrol) 4 mg PO QWK [facility] Tamsulosin HCl (Flomax) 0.8 mg PO HS [facility] Last Admin: 05/15/18 22:16 Dose: 0.8 mg - Labs Labs: 05/15/18 13:01 05/15/18 13:01 - Constitutional Appears: Well - Head Exam Head Exam: ATRAUMATIC, NORMAL INSPECTION, NORMOCEPHALIC - Eye Exam Eye Exam: EOMI, Normal appearance, PERRL Pupil Exam: NORMAL ACCOMODATION, PERRL - ENT Exam ENT Exam: Mucous Membranes Moist, Normal Exam - Neck Exam Neck Exam: Full ROM, Normal Inspection. absent: Lymphadenopathy - Respiratory Exam Respiratory Exam: Decreased Breath Sounds - Cardiovascular Exam Cardiovascular Exam: REGULAR RHYTHM, +S1, +S2 - GI/Abdominal Exam GI & Abdominal Exam: Diminished Bowel Sounds - Rectal Exam Rectal Exam: Deferred
--- NOTE | 2018-05-16 15:29 | RAD ---
Date of service: 05/16/2018 PROCEDURE: Right Foot Radiographs. HISTORY: right foot/ankle wound, r/o OM COMPARISON: None. FINDINGS: BONES: No fracture seen. Status post amputation 3rd digit proximal phalanx mid shaft level. No periosteal reaction here or elsewhere seen. JOINTS: 1st metatarsal-phalangeal joint arthrosis Clinodactyly 5th toe over 4th noted Midfoot osteoarthrosis. SOFT TISSUES: Atherosclerotic vascular calcifications noted The site of the wound is not apparent to me at this time. OTHER FINDINGS: None. IMPRESSION: Status post amputation 3rd digit mid shaft proximal phalanx. No cortical destruction or periosteal reaction seen to suggest osteomyelitis. Chronicity of this appearance is unknown. Gaseous subcutaneous emphysema suggested. Atherosclerotic vascular calcifications present. Multifocal arthrosis most pronounced 1st metatarsal-phalangeal joint.
[2018-05-16 15:42] LABS: CK-MB 0.76 ng/mL (0.0-3.38)
--- NOTE | 2018-05-16 16:56 | CP.PCM.PN ---
Subjective - Date & Time of Evaluation Date of Evaluation: 05/16/18 Time of Evaluation: 16:53 - Subjective Subjective: Podiatry Consult note: Dr. Amador 67 year old male was evaluated at [facility] for right foot chronic ulceration. Patient is AAOx3 and appears in no acute distress. Patient denies of any pain today. States that he is feeling well. States that his dressing was changed by nursing earlier today. No other pedal complains at this time. No recent F/N/V/C/SOB/CP/headache. Objective - Vital Signs/Intake and Output Vital Signs (last 24 hours): Temp Pulse Resp BP Pulse Ox 97.6 F 69 20 163/87 H 96 05/16/18 15:00 05/16/18 16:03 05/16/18 15:00 05/16/18 15:00 05/16/18 16:48 Intake and Output: 05/16/18 05/16/18 06:59 18:59 Output Total 300 Balance -300 - Medications Medications: Current Medications Alprazolam (Xanax) 1 mg PO BID PRN PRN Reason: Anxiety Aspirin (Ecotrin) 81 mg PO DAILY [facility] Last Admin: 05/16/18 12:06 Dose: 81 mg Cilostazol (Pletal) 50 mg PO BID [facility] Ciprofloxacin (Cipro) 500 mg PO BID [facility]; Protocol Last Admin: 05/16/18 12:04 Dose: 500 mg Dextrose (Dextrose 50% Inj) 0 ml IV STAT PRN; Protocol PRN Reason: Hypoglycemia Protocol Dextrose (Glutose 15) 0 gm PO ONCE PRN; Protocol PRN Reason: Hypoglycemia Protocol Enoxaparin Sodium (Lovenox) 40 mg SC DAILY [facility] Last Admin: 05/16/18 12:05 Dose: 40 mg Glucagon (Glucagen Diagnostic Kit) 0 mg IM STAT PRN; Protocol PRN Reason: Hypoglycemia Protocol Piperacillin Sod/Tazobactam (Sod 3.375 gm/ Sodium Chloride) 100 mls @ 200 mls/hr IVPB Q8H [facility]; Protocol Last Admin: 05/16/18 14:47 Dose: 200 mls/hr Dextrose (Dextrose 5% In Water 1000 Ml) 1,000 mls @ 0 mls/hr IV .Q0M PRN; Protocol PRN Reason: Hypoglycemia Protocol Insulin Aspart (Novolog) 0 unit SC ACHS [facility]; Protocol Last Admin: 05/16/18 16:28 Dose: Not Given Latanoprost (Xalatan Opht) 0 ml OS Q24H [facility] Metformin HCl (Glucophage) 500 mg PO BID [facility] Last Admin: 05/16/18 12:04 Dose: 500 mg Methylprednisolone (Medrol) 4 mg PO QWK [facility] Methylprednisolone (Medrol) 4 mg PO QWK [facility] Tamsulosin HCl (Flomax) 0.8 mg PO HS [facility] Last Admin: 05/15/18 22:16 Dose: 0.8 mg - Labs Labs: 05/15/18 13:01 05/15/18 13:01 - Constitutional Appears: Well, Non-toxic, No Acute Distress - Extremities Exam Additional comments: Dressing is clean, dry and intact; no strike-through noted - Neurological Exam Neurological Exam: Alert, Awake, Oriented x3 - Psychiatric Exam Psychiatric exam: Normal Affect, Normal Mood Assessment and Plan - Assessment and Plan (Free Text) Assessment: 67 year old male was evaluated for right foot chronic ulceration Plan: Patient seen and evaluated Discussed plan with attending Dr. Perry VINES, No leukocytosis Right foot cultures taken - pending Foot x-rays ordered - no signs of acute OM; no signs of soft tissue emphysema KAITY/PVR ordered - non-conclusive due to calcified vessels Wound cleaned and dressing applied using betadine, DSD Continue abx as per primary Podiatry to follow patient while in-house
[2018-05-16] MEDS: Cilostazol 50 mg Tab UD PO SCH (17:55)
--- NOTE | 2018-05-16 18:04 | CARD ---
APPROVED REPORT Date of service: 05/16/2018 EXAM: Two-dimensional and M-mode echocardiogram with Doppler and color Doppler. Other Information Quality : GoodRhythm : INDICATION cardiogenic RISK FACTORS Hypertension 2D DIMENSIONS IVSd0.9 (0.7-1.1cm)Aortic Root (2D)3.4 (2.0-3.7cm) LVDd5.2 (3.9-5.9cm)PWd0.8 (0.7-1.1cm) LA [id number] (18-58mL)LVDs3.0 (2.5-4.0cm) FS (%) 42.4 %LVEF (%)73.1 (>50%) LVEF (Kumar's)70.36 %IVC0.00 cm M-Mode DIMENSIONS RVDd1.66 (2.1-3.2cm)Left Atrium (MM)2.76 (2.5-4.0cm) IVSd1.11 (0.7-1.1cm)Aortic Root3.65 (2.2-3.7cm) LVDd6.01 (4.0-5.6cm)Aortic Cusp Exc.2.20 (1.5-2.0cm) PWd1.11 (0.7-1.1cm)FS (%) 47 % LVDs3.17 (2.0-3.8cm)LVEF (%)78 (>50%) Mitral Valve MV E Iumrzjyu87.1cm/sMV A Emgzuxfo06.0cm/sE/A ratio0.8 TDI Lateral E' Peak V9.13cm/sMedial E' Peak V5.77cm/sE/Lateral E'7.2 E/Medial E'11.5 Tricuspid Valve TR Peak [id number]/sTR Peak Gr.[id number] LEFT VENTRICLE The left ventricle is normal size. There is normal left ventricular wall thickness. The left ventricular systolic function is normal. The left ventricular ejection fraction is within the normal range. There is normal LV segmental wall motion. Grade I diatolic dysfunction-abnormal relaxation pattern. Normal left atrial pressure. RIGHT VENTRICLE The right ventricle is normal size. The right ventricular systolic function is normal. ATRIA The left atrium size is normal. The right atrium size is normal. The interatrial septum is intact with no evidence for an atrial septal defect. AORTIC VALVE The aortic valve is normal in structure. No aortic regurgitation is present. There is no aortic valvular stenosis. MITRAL VALVE The mitral valve is normal in structure. There is no mitral valve regurgitation noted. TRICUSPID VALVE The tricuspid valve is normal in structure. There is trace tricuspid regurgitation. PULMONIC VALVE The pulmonary valve is normal in structure. There is trace pulmonic valvular regurgitation. GREAT VESSELS The aortic root is normal in size. The IVC is normal in size and collapses >50% with inspiration. PERICARDIAL EFFUSION There is no pericardial effusion. <Conclusion> The left ventricular systolic function is normal. There is normal LV segmental wall motion. Grade I diastolic dysfunction-abnormal relaxation pattern. Normal left atrial pressure. The right ventricular systolic function is normal. No significant valvular abnormality noted. There is no pericardial effusion.
--- NOTE | 2018-05-16 20:54 | CP.PCM.CON ---
History of Present Illness - History of Present Illness History of Present Illness: dictated Past Patient History - Infectious Disease Hx of Infectious Diseases: None - Past Medical History & Family History Past Medical History?: Yes - Past Social History Smoking Status: Former Smoker - CARDIAC Hx Cardiac Disorders: Yes - PULMONARY Hx Chronic Obstructive Pulmonary Disease (COPD): No (DENIES 05/15/18) - NEUROLOGICAL Hx Neurological Disorder: No - HEENT Hx HEENT Problems: Yes Hx Blind: Yes (R eye d/t trauma in 1976) Hx Glaucoma: Yes (L eye) - RENAL Hx Chronic Kidney Disease: No - ENDOCRINE/METABOLIC Hx Diabetes Mellitus Type 2: Yes - HEMATOLOGICAL/ONCOLOGICAL Hx Blood Disorders: No - INTEGUMENTARY Hx Dermatological Problems: No - MUSCULOSKELETAL/RHEUMATOLOGICAL Hx Musculoskeletal Disorders: Yes (chronic neck pain) Hx Falls: Yes - GASTROINTESTINAL Hx Gastrointestinal Disorders: No - GENITOURINARY/GYNECOLOGICAL Hx Genitourinary Disorders: No - PSYCHIATRIC Hx Anxiety: Yes Hx Depression: Yes Hx Substance Use: No - SURGICAL HISTORY Hx Surgeries: Yes Hx Amputation: Yes (3rd toe of R foot) - ANESTHESIA Hx Anesthesia: Yes Hx Anesthesia Reactions: No Hx Malignant Hyperthermia: No Meds Allergies/Adverse Reactions: Allergies Allergy/AdvReac Type Severity Reaction Status Date / Time barley Allergy Verified 05/15/18 11:48 milk Allergy Verified 05/15/18 11:48 - Medications Medications: Current Medications Alprazolam (Xanax) 1 mg PO BID PRN PRN Reason: Anxiety Last Admin: 05/16/18 17:58 Dose: 1 mg Aspirin (Ecotrin) 81 mg PO DAILY [facility] Last Admin: 05/16/18 12:06 Dose: 81 mg Cilostazol (Pletal) 50 mg PO BID [facility] Last Admin: 05/16/18 17:55 Dose: 50 mg Ciprofloxacin (Cipro) 500 mg PO BID [facility]; Protocol Last Admin: 05/16/18 17:56 Dose: Not Given Cyclobenzaprine HCl (Flexeril) 10 mg PO HS PRN PRN Reason: Muscle spasm Dextrose (Dextrose 50% Inj) 0 ml IV STAT PRN; Protocol PRN Reason: Hypoglycemia Protocol Dextrose (Glutose 15) 0 gm PO ONCE PRN; Protocol PRN Reason: Hypoglycemia Protocol Enoxaparin Sodium (Lovenox) 40 mg SC DAILY [facility] Last Admin: 05/16/18 12:05 Dose: 40 mg Glucagon (Glucagen Diagnostic Kit) 0 mg IM STAT PRN; Protocol PRN Reason: Hypoglycemia Protocol Piperacillin Sod/Tazobactam (Sod 3.375 gm/ Sodium Chloride) 100 mls @ 200 mls/hr IVPB Q8H [facility]; Protocol Last Admin: 05/16/18 14:47 Dose: 200 mls/hr Dextrose (Dextrose 5% In Water 1000 Ml) 1,000 mls @ 0 mls/hr IV .Q0M PRN; Protocol PRN Reason: Hypoglycemia Protocol Insulin Aspart (Novolog) 0 unit SC ACHS [facility]; Protocol Last Admin: 05/16/18 16:28 Dose: Not Given Latanoprost (Xalatan Opht) 0 ml OS Q24H [facility] Metformin HCl (Glucophage) 500 mg PO BID [facility] Last Admin: 05/16/18 17:55 Dose: 500 mg Methylprednisolone (Medrol) 4 mg PO QWK [facility] Methylprednisolone (Medrol) 4 mg PO QWK [facility] Tamsulosin HCl (Flomax) 0.8 mg PO HS [facility] Last Admin: 05/15/18 22:16 Dose: 0.8 mg Results - Vital Signs Recent Vital Signs: Last Vital Signs Temp 97.6 F 05/16/18 15:00 Pulse 69 05/16/18 16:03 Resp 20 05/16/18 15:00 BP 163/87 H 05/16/18 15:00 Pulse Ox 96 05/16/18 16:48 - Labs Result Diagrams: 05/15/18 13:01 05/15/18 13:01 Labs: Laboratory Results - last 24 hr 05/15/18 05/16/18 05/16/18 21:07 06:15 06:24 POC Glucose (mg/dL) 156 H 127 H Total Creatine Kinase 41 L CK-MB (Mass) 1.09 Troponin I < 0.0120 05/16/18 05/16/18 05/16/18 12:03 14:07 16:03 POC Glucose (mg/dL) 129 H 125 H Total Creatine Kinase 47 L CK-MB (Mass) 0.76 Troponin I < 0.0120
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
[2018-05-17] MEDS: Piperacillin/Tazobact 3.375 GM in Sodium Chloride 100 ML IVPB SCH ×3 (05:01→22:14)
[2018-05-17] MEDS: (Novolog) Insulin Aspart, Recombinant 100 u/ml 10 ml vial SC SCH ×4 (07:51→22:13)
--- NOTE | 2018-05-17 09:02 | PN ---
DATE: 05/17/2018 NEUROLOGIC PROBLEM: Syncopal attack. PHYSICAL EXAMINATION: VITAL SIGNS: Blood pressure 158/60, pulmonary arterial pressure of 95, respiratory rate of 18, temperature 97.9 with a pulse rate of 53 and regular. GENERAL: The patient is arousable on calling his name. He complains slight haziness of his vision and generalized weakness, but without any focal deficit. His examination is unchanged compared with his previous examination. MRI of the brain reviewed by me showed bilateral small vessel disease without any acute pathology. His recommended electroencephalogram is still pending. The patient should get out of bed and physical therapy should be initiated as early as possible. The patient should have a followup visit. Cardiology is to follow for his syncope. Doc García MD
[2018-05-17] MEDS: Latanoprost 2.5 ml Opht Soln OS SCH (09:15)
[2018-05-17] MEDS: Enoxaparin 40 mg Syringe SC SCH (10:54)
[2018-05-17] MEDS: Cilostazol 50 mg Tab UD PO SCH ×2 (10:55→18:48)
--- NOTE | 2018-05-17 13:10 | CP.PCM.PN ---
Subjective - Date & Time of Evaluation Date of Evaluation: 05/17/18 Time of Evaluation: 13:07 - Subjective Subjective: Podiatry Consult note: Dr. Amador 67 year old male was evaluated with family at bedside for right foot chronic ulceration. Patient is AAOx3 and appears in no acute distress. Patient denies of any pain today. No other pedal complains at this time. No recent F/N/V/C/SOB/CP/headache. Objective - Vital Signs/Intake and Output Vital Signs (last 24 hours): Temp Pulse Resp BP Pulse Ox 97.7 F 67 20 144/65 94 L 05/17/18 07:00 05/17/18 09:00 05/17/18 07:00 05/17/18 07:00 05/17/18 11:58 - Medications Medications: Current Medications Alprazolam (Xanax) 1 mg PO BID PRN PRN Reason: Anxiety Last Admin: 05/16/18 17:58 Dose: 1 mg Aspirin (Ecotrin) 81 mg PO DAILY [facility] Last Admin: 05/17/18 10:55 Dose: 81 mg Cilostazol (Pletal) 50 mg PO BID [facility] Last Admin: 05/17/18 10:55 Dose: 50 mg Cyclobenzaprine HCl (Flexeril) 10 mg PO HS PRN PRN Reason: Muscle spasm Last Admin: 05/16/18 22:03 Dose: 10 mg Dextrose (Dextrose 50% Inj) 0 ml IV STAT PRN; Protocol PRN Reason: Hypoglycemia Protocol Dextrose (Glutose 15) 0 gm PO ONCE PRN; Protocol PRN Reason: Hypoglycemia Protocol Enoxaparin Sodium (Lovenox) 40 mg SC DAILY [facility] Last Admin: 05/17/18 10:54 Dose: 40 mg Glucagon (Glucagen Diagnostic Kit) 0 mg IM STAT PRN; Protocol PRN Reason: Hypoglycemia Protocol Piperacillin Sod/Tazobactam (Sod 3.375 gm/ Sodium Chloride) 100 mls @ 200 mls/hr IVPB Q8H [facility]; Protocol Last Admin: 05/17/18 05:01 Dose: 200 mls/hr Dextrose (Dextrose 5% In Water 1000 Ml) 1,000 mls @ 0 mls/hr IV .Q0M PRN; Protocol PRN Reason: Hypoglycemia Protocol Insulin Aspart (Novolog) 0 unit SC ACHS [facility]; Protocol Last Admin: 05/17/18 11:36 Dose: 1 unit Latanoprost (Xalatan Opht) 0 ml OS Q24H [facility] Last Admin: 05/17/18 09:15 Dose: 2.5 ml Metformin HCl (Glucophage) 500 mg PO BID [facility] Last Admin: 05/17/18 10:54 Dose: 500 mg Methylprednisolone (Medrol) 4 mg PO QWK [facility] Methylprednisolone (Medrol) 4 mg PO QWK [facility] Tamsulosin HCl (Flomax) 0.8 mg PO HS [facility] Last Admin: 05/16/18 22:03 Dose: 0.8 mg - Labs Labs: 05/15/18 13:01 05/15/18 13:01 - Constitutional Appears: Well, Non-toxic, No Acute Distress - Extremities Exam Additional comments: VASC: DP pulses are faintly palpable, PT pulses are 1/4, Cap refill time: < 3 sec to all digits, Temp gradient: warm to cool from proximal to distal on the left and warm to warm on the left, no pitting or non-pitting edema noted DERM: 2 small open lesions measuring approx 0.7 cm x 0.3 cm x 0.1 cm on the anterior medial aspect of the right ankle superior to anterior tibial tendon, wound base is necro-grannular, no active drainage, no malodor, no tunneling, no undermining, diffuse erythema noted on the right foot, superficial hallux epidermal shedding with superficial bleeding NEURO: Protective sensation grossly intact ORTHO: MMT: 5/5 in all 4 direction, no pain on palpation of the wound on the right foot - Neurological Exam Neurological Exam: Alert, Awake, Oriented x3 - Psychiatric Exam Psychiatric exam: Normal Affect, Normal Mood Assessment and Plan - Assessment and Plan (Free Text) Assessment: 67 year old male was evaluated for right foot chronic ulceration Plan: Patient seen and evaluated Discussed plan with attending Dr. Perry VINES, No leukocytosis Right foot cultures taken - Coag negative staph Continue abx as per ID Foot x-rays ordered - no signs of acute OM; no signs of soft tissue emphysema KAITY/PVR ordered - non-conclusive due to calcified vessels Wound cleaned and dressing applied using domenico DSValerie No plan for surgical intervention at this time Stable from podiatry standpoint Podiatry to follow patient while in-house
--- NOTE | 2018-05-17 15:02 | CARD ---
APPROVED REPORT Date of service: 05/15/2018 EKG Measurement Heart [id number] <Conclusion> Sinus bradycardia Incomplete right bundle branch block Borderline ECG
--- NOTE | 2018-05-17 19:33 | CP.PCM.PN ---
Subjective - Date & Time of Evaluation Date of Evaluation: 05/17/18 Time of Evaluation: 10:45 - Subjective Subjective: clinically same Objective - Vital Signs/Intake and Output Vital Signs (last 24 hours): Temp Pulse Resp BP Pulse Ox 98.4 F 80 20 138/84 94 L 05/17/18 15:00 05/17/18 16:04 05/17/18 15:00 05/17/18 15:00 05/17/18 16:04 - Medications Medications: Current Medications Alprazolam (Xanax) 1 mg PO BID PRN PRN Reason: Anxiety Last Admin: 05/17/18 18:48 Dose: 1 mg Aspirin (Ecotrin) 81 mg PO DAILY [facility] Last Admin: 05/17/18 10:55 Dose: 81 mg Cilostazol (Pletal) 50 mg PO BID [facility] Last Admin: 05/17/18 18:48 Dose: 50 mg Cyclobenzaprine HCl (Flexeril) 10 mg PO HS PRN PRN Reason: Muscle spasm Last Admin: 05/16/18 22:03 Dose: 10 mg Dextrose (Dextrose 50% Inj) 0 ml IV STAT PRN; Protocol PRN Reason: Hypoglycemia Protocol Dextrose (Glutose 15) 0 gm PO ONCE PRN; Protocol PRN Reason: Hypoglycemia Protocol Enoxaparin Sodium (Lovenox) 40 mg SC DAILY [facility] Last Admin: 05/17/18 10:54 Dose: 40 mg Glucagon (Glucagen Diagnostic Kit) 0 mg IM STAT PRN; Protocol PRN Reason: Hypoglycemia Protocol Piperacillin Sod/Tazobactam (Sod 3.375 gm/ Sodium Chloride) 100 mls @ 200 mls/hr IVPB Q8H [facility]; Protocol Last Admin: 05/17/18 14:16 Dose: 200 mls/hr Dextrose (Dextrose 5% In Water 1000 Ml) 1,000 mls @ 0 mls/hr IV .Q0M PRN; Protocol PRN Reason: Hypoglycemia Protocol Insulin Aspart (Novolog) 0 unit SC ACHS [facility]; Protocol Last Admin: 05/17/18 18:49 Dose: Not Given Latanoprost (Xalatan Opht) 0 ml OS Q24H [facility] Last Admin: 05/17/18 09:15 Dose: 2.5 ml Metformin HCl (Glucophage) 500 mg PO BID [facility] Last Admin: 05/17/18 18:48 Dose: 500 mg Methylprednisolone (Medrol) 4 mg PO QWK [facility] Methylprednisolone (Medrol) 4 mg PO QWK [facility] Tamsulosin HCl (Flomax) 0.8 mg PO HS [facility] Last Admin: 05/16/18 22:03 Dose: 0.8 mg - Labs Labs: 05/15/18 13:01 05/15/18 13:01 - Constitutional Appears: Well - Head Exam Head Exam: ATRAUMATIC, NORMAL INSPECTION, NORMOCEPHALIC - Eye Exam Eye Exam: EOMI, Normal appearance, PERRL Pupil Exam: NORMAL ACCOMODATION, PERRL - ENT Exam ENT Exam: Mucous Membranes Moist, Normal Exam - Neck Exam Neck Exam: Full ROM, Normal Inspection. absent: Lymphadenopathy - Respiratory Exam Respiratory Exam: Decreased Breath Sounds - Cardiovascular Exam Cardiovascular Exam: REGULAR RHYTHM, +S1, +S2 - GI/Abdominal Exam GI & Abdominal Exam: Soft, Diminished Bowel Sounds - Rectal Exam Rectal Exam: Deferred
[2018-05-18] MEDS: Piperacillin/Tazobact 3.375 GM in Sodium Chloride 100 ML IVPB SCH (05:22)
[2018-05-18] MEDS: (Novolog) Insulin Aspart, Recombinant 100 u/ml 10 ml vial SC SCH ×4 (07:39→23:08)
[2018-05-18] MEDS: Latanoprost 2.5 ml Opht Soln OS SCH (08:24)
[2018-05-18] MEDS: Enoxaparin 40 mg Syringe SC SCH (09:45)
[2018-05-18] MEDS: Cilostazol 50 mg Tab UD PO SCH ×2 (09:45→18:28)
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
--- NOTE | 2018-05-18 12:26 | CP.PCM.PN ---
Subjective - Date & Time of Evaluation Date of Evaluation: 05/18/18 Time of Evaluation: 12:00 - Subjective Subjective: dictated Objective - Vital Signs/Intake and Output Vital Signs (last 24 hours): Temp Pulse Resp BP Pulse Ox 97.6 F 103 H 18 148/76 95 05/18/18 07:02 05/18/18 07:30 05/18/18 07:02 05/18/18 07:02 05/18/18 07:02 - Medications Medications: Current Medications Alprazolam (Xanax) 1 mg PO BID PRN PRN Reason: Anxiety Last Admin: 05/17/18 18:48 Dose: 1 mg Aspirin (Ecotrin) 81 mg PO DAILY [facility] Last Admin: 05/18/18 09:45 Dose: 81 mg Cilostazol (Pletal) 50 mg PO BID [facility] Last Admin: 05/18/18 09:45 Dose: 50 mg Cyclobenzaprine HCl (Flexeril) 10 mg PO HS PRN PRN Reason: Muscle spasm Last Admin: 05/16/18 22:03 Dose: 10 mg Dextrose (Dextrose 50% Inj) 0 ml IV STAT PRN; Protocol PRN Reason: Hypoglycemia Protocol Dextrose (Glutose 15) 0 gm PO ONCE PRN; Protocol PRN Reason: Hypoglycemia Protocol Enoxaparin Sodium (Lovenox) 40 mg SC DAILY [facility] Last Admin: 05/18/18 09:45 Dose: 40 mg Glucagon (Glucagen Diagnostic Kit) 0 mg IM STAT PRN; Protocol PRN Reason: Hypoglycemia Protocol Piperacillin Sod/Tazobactam (Sod 3.375 gm/ Sodium Chloride) 100 mls @ 200 mls/hr IVPB Q8H [facility]; Protocol Last Admin: 05/18/18 05:22 Dose: 200 mls/hr Dextrose (Dextrose 5% In Water 1000 Ml) 1,000 mls @ 0 mls/hr IV .Q0M PRN; Protocol PRN Reason: Hypoglycemia Protocol Insulin Aspart (Novolog) 0 unit SC ACHS [facility]; Protocol Last Admin: 05/18/18 12:03 Dose: 1 unit Latanoprost (Xalatan Opht) 0 ml OS Q24H [facility] Last Admin: 05/18/18 08:24 Dose: 1 ml Metformin HCl (Glucophage) 500 mg PO BID [facility] Last Admin: 05/18/18 09:45 Dose: 500 mg Methylprednisolone (Medrol) 4 mg PO QWK [facility] Methylprednisolone (Medrol) 4 mg PO QWK [facility] Tamsulosin HCl (Flomax) 0.8 mg PO [facility] Last Admin: 05/17/18 22:14 Dose: 0.8 mg - Labs Labs: 05/15/18 13:01 05/15/18 13:01
--- NOTE | 2018-05-18 12:40 | CP.PCM.PN ---
Subjective - Date & Time of Evaluation Date of Evaluation: 05/18/18 Time of Evaluation: 12:38 - Subjective Subjective: Podiatry Consult note: Dr. Amador 67 year old male was evaluated at bedside for right foot chronic ulceration. Patient is AAOx3 and appears in no acute distress. Patient denies of any pain today. No other pedal complains at this time. No recent F/N/V/C/SOB/CP/headache. Objective - Vital Signs/Intake and Output Vital Signs (last 24 hours): Temp Pulse Resp BP Pulse Ox 97.6 F 103 H 18 148/76 95 05/18/18 07:02 05/18/18 07:30 05/18/18 07:02 05/18/18 07:02 05/18/18 07:02 - Medications Medications: Current Medications Alprazolam (Xanax) 1 mg PO BID PRN PRN Reason: Anxiety Last Admin: 05/17/18 18:48 Dose: 1 mg Aspirin (Ecotrin) 81 mg PO DAILY [facility] Last Admin: 05/18/18 09:45 Dose: 81 mg Cilostazol (Pletal) 50 mg PO BID [facility] Last Admin: 05/18/18 09:45 Dose: 50 mg Cyclobenzaprine HCl (Flexeril) 10 mg PO HS PRN PRN Reason: Muscle spasm Last Admin: 05/16/18 22:03 Dose: 10 mg Dextrose (Dextrose 50% Inj) 0 ml IV STAT PRN; Protocol PRN Reason: Hypoglycemia Protocol Dextrose (Glutose 15) 0 gm PO ONCE PRN; Protocol PRN Reason: Hypoglycemia Protocol Enoxaparin Sodium (Lovenox) 40 mg SC DAILY [facility] Last Admin: 05/18/18 09:45 Dose: 40 mg Glucagon (Glucagen Diagnostic Kit) 0 mg IM STAT PRN; Protocol PRN Reason: Hypoglycemia Protocol Dextrose (Dextrose 5% In Water 1000 Ml) 1,000 mls @ 0 mls/hr IV .Q0M PRN; Protocol PRN Reason: Hypoglycemia Protocol Insulin Aspart (Novolog) 0 unit SC ACHS [facility]; Protocol Last Admin: 05/18/18 12:03 Dose: 1 unit Latanoprost (Xalatan Opht) 0 ml OS Q24H [facility] Last Admin: 05/18/18 08:24 Dose: 1 ml Metformin HCl (Glucophage) 500 mg PO BID [facility] Last Admin: 05/18/18 09:45 Dose: 500 mg Methylprednisolone (Medrol) 4 mg PO QWK [place] Methylprednisolone (Medrol) 4 mg PO QWK [place] Tamsulosin HCl (Flomax) 0.8 mg PO HS [facility] Last Admin: 05/17/18 22:14 Dose: 0.8 mg - Labs Labs: 05/15/18 13:01 05/15/18 13:01 - Constitutional Appears: Well, Non-toxic, No Acute Distress - Extremities Exam Additional comments: VASC: DP pulses are faintly palpable, PT pulses are 1/4, Cap refill time: < 3 sec to all digits, Temp gradient: warm to cool from proximal to distal on the left and warm to warm on the left, no pitting or non-pitting edema noted DERM: 2 small open lesions measuring approx 0.7 cm x 0.3 cm x 0.1 cm on the anterior medial aspect of the right ankle superior to anterior tibial tendon, wound base is necro-grannular, no active drainage, no malodor, no tunneling, no undermining, diffuse erythema noted on the right foot which appears to be resolving, superficial hallux epidermal shedding with superficial bleeding NEURO: Protective sensation grossly intact ORTHO: MMT: 5/5 in all 4 direction, no pain on palpation of the wound on the right foot - Neurological Exam Neurological Exam: Alert, Awake, Oriented x3 - Psychiatric Exam Psychiatric exam: Normal Affect, Normal Mood Assessment and Plan - Assessment and Plan (Free Text) Assessment: 67 year old male was evaluated for right foot chronic ulceration Plan: Patient seen and evaluated Discussed plan with attending Dr. Perry VINES, No leukocytosis Right foot cultures taken - Coag negative staph Continue abx as per ID Foot x-rays ordered - no signs of acute OM; no signs of soft tissue emphysema KAITY/PVR ordered - non-conclusive due to calcified vessels Wound cleaned and dressing applied using MIR[employer]LE acuña No plan for surgical intervention at this time Stable from podiatry standpoint Upon discharge, please follow up with Dr. Lipscomb (his pattern attendant) as an outpatient basis Podiatry to follow patient while in-house
[2018-05-18 16:11] VITALS: RESP 20
--- NOTE | 2018-05-18 17:51 | CP.PCM.PN ---
Subjective - Date & Time of Evaluation Date of Evaluation: 05/18/18 Time of Evaluation: 10:45 - Subjective Subjective: clinically same Objective - Vital Signs/Intake and Output Vital Signs (last 24 hours): Temp Pulse Resp BP Pulse Ox 97.7 F 101 H 20 170/89 H 96 05/18/18 15:10 05/18/18 15:10 05/18/18 15:10 05/18/18 15:10 05/18/18 15:10 - Medications Medications: Current Medications Alprazolam (Xanax) 1 mg PO BID PRN PRN Reason: Anxiety Last Admin: 05/17/18 18:48 Dose: 1 mg Aspirin (Ecotrin) 81 mg PO DAILY [facility] Last Admin: 05/18/18 09:45 Dose: 81 mg Cilostazol (Pletal) 50 mg PO BID [facility] Last Admin: 05/18/18 09:45 Dose: 50 mg Cyclobenzaprine HCl (Flexeril) 10 mg PO HS PRN PRN Reason: Muscle spasm Last Admin: 05/16/18 22:03 Dose: 10 mg Dextrose (Dextrose 50% Inj) 0 ml IV STAT PRN; Protocol PRN Reason: Hypoglycemia Protocol Dextrose (Glutose 15) 0 gm PO ONCE PRN; Protocol PRN Reason: Hypoglycemia Protocol Enoxaparin Sodium (Lovenox) 40 mg SC DAILY [facility] Last Admin: 05/18/18 09:45 Dose: 40 mg Glucagon (Glucagen Diagnostic Kit) 0 mg IM STAT PRN; Protocol PRN Reason: Hypoglycemia Protocol Home Med (Patient's Own Drops) 1 drop OS DAILY [facility] Home Med (Patient's Own Topical) 1 gm TOP Q12 [facility] Dextrose (Dextrose 5% In Water 1000 Ml) 1,000 mls @ 0 mls/hr IV .Q0M PRN; Protocol PRN Reason: Hypoglycemia Protocol Insulin Aspart (Novolog) 0 unit SC ACHS [facility]; Protocol Last Admin: 05/18/18 12:03 Dose: 1 unit Latanoprost (Xalatan Opht) 0 ml OS Q24H [facility] Last Admin: 05/18/18 08:24 Dose: 1 ml Metformin HCl (Glucophage) 500 mg PO BID [facility] Last Admin: 05/18/18 09:45 Dose: 500 mg Methylprednisolone (Medrol) 4 mg PO QWK [facility] Methylprednisolone (Medrol) 4 mg PO QWK [facility] Tamsulosin HCl (Flomax) 0.8 mg PO HS [facility] Last Admin: 05/17/18 22:14 Dose: 0.8 mg - Labs Labs: 05/15/18 13:01 05/15/18 13:01 - Constitutional Appears: Well - Head Exam Head Exam: ATRAUMATIC, NORMAL INSPECTION, NORMOCEPHALIC - Eye Exam Eye Exam: EOMI, Normal appearance, PERRL Pupil Exam: NORMAL ACCOMODATION, PERRL - ENT Exam ENT Exam: Mucous Membranes Moist, Normal Exam - Neck Exam Neck Exam: Full ROM, Normal Inspection. absent: Lymphadenopathy - Respiratory Exam Respiratory Exam: Decreased Breath Sounds - Cardiovascular Exam Cardiovascular Exam: REGULAR RHYTHM, +S1, +S2 - GI/Abdominal Exam GI & Abdominal Exam: Soft, Diminished Bowel Sounds - Rectal Exam Rectal Exam: Deferred
--- NOTE | 2018-05-18 18:18 | PN ---
DATE: 05/18/2018 SUBJECTIVE: The patient is feeling better. He has no more dizziness, no syncope. His foot is better. I told him that he grew coagulase-negative staph which could be a skin contaminant and his wound looks good and may just heal with a local wound care. He said he will follow up with Dr. Lipscomb. He denies any other complaints. T-max is 97.6, pulse 72, blood pressure 148/76, respirations are 18. He himself says that he walked 3 weeks after being in bed that time and may have had dizziness due to multiple reasons and had passed out and is here. He was evaluated by Cardiology. He says the vascular doctor told him his vessels are stable and he was going to put Ecotrin on 81 mg and another antiplatelet which would help him and he says he would have to take it for the longest time. So the patient understands he is improving. PHYSICAL EXAMINATION: GENERAL: T max is 97.6, heart rate 103 right now, but was 72 before, blood pressure 148/76, respirations are 18. HEENT: Head is atraumatic, normocephalic and tongue is moist. NECK: Supple. JVP is flat. LUNGS: Clear to auscultation. No crackles or rales present. HEART: S1 and S2 is regular. ABDOMEN: Soft, nontender. No guarding, no rigidity present. EXTREMITIES: Right foot has a dressing at this time. I had seen the wound before and he has some healing wound on the right great toe which is healing and has a small scab in the right foot. Dorsum of the foot has ulcerations which is healing. He does have vascular changes on his foot which are evident on both sides. LABORATORY DATA: There are no new labs. When he came in, his white count was 8.6. At this time, I would discontinue the Zosyn. He is not willing to take any oral antibiotic at this time and I think he may be right that he may do well without it at this time but he needs to be monitored and should be monitored by the deboning team leader as well as the PMD, and corrugator. IMPRESSION: He did come in with syncope. He is diabetic. He was dehydrated and may have had a vasovagal or dehydration and he was also deconditioned at that time and has healing right foot ulcer at this time Eric Khoury MD
[2018-05-19] MEDS: (Novolog) Insulin Aspart, Recombinant 100 u/ml 10 ml vial SC SCH ×2 (07:15→12:12)
[2018-05-19 07:19] LABS: BASO % 0.7 % (0.0-2.0); EOS # 0.1 K/uL (0.0-0.7); EOS % 2.4 % (0.0-4.0); HEMOGLOBIN 14.8 g/dL (12.0-18.0); LYMPH # 2.3 K/uL (1.0-4.3); LYMPH % 36.7 % (20.0-40.0); MEAN CELL VOLUME 89.5 fL (80.0-94.0); MEAN CORPUSCULAR HEMOGLOBIN 30.8 pg (27.0-31.0); MEAN CORPUSCULAR HGB CONC 34.4 g/dL (33.0-37.0); MEAN PLATELET VOLUME 9.3 fL (7.2-11.7); MONO # 0.6 K/uL (0.0-0.8); MONO % 9.5 % (0.0-10.0); NEUT # 3.2 K/uL (1.8-7.0); NEUT % 50.7 % (50.0-75.0); NRBC % 0.1 % (0.0-2.0); RBC 4.82 Mil/uL (4.40-5.90); RED CELL DISTRIBUTION WIDTH 13.3 % (11.5-14.5); WHITE BLOOD COUNT 6.2 K/uL (4.8-10.8)
[2018-05-19 07:28] LABS: BLOOD UREA NITROGEN 14 mg/dL (9-20); CALCIUM 8.9 mg/dl (8.6-10.4); GFR NON-AFRICAN AMERICAN > 60
[2018-05-19 07:43] VITALS: BP 143/83; PULSE 92; TEMP 98; O2SAT 96
[2018-05-19] MEDS: Cilostazol 50 mg Tab UD PO SCH (09:57)
[2018-05-19] MEDS ORDERED: TIMOPTIC 0.5% OS SCH ×2 (10:00)
[2018-05-19] MEDS: Latanoprost 2.5 ml Opht Soln OS SCH (10:00)
[2018-05-19] MEDS ORDERED: BETAMETHASONE 0.05% TOP SCH (10:00)
[2018-05-19] MEDS: Enoxaparin 40 mg Syringe SC SCH (10:01)
--- NOTE | 2018-05-19 18:31 | CP.PCM.PN ---
Subjective - Date & Time of Evaluation Date of Evaluation: 05/19/18 Time of Evaluation: 18:29 - Subjective Subjective: Podiatry Consult note: Dr. Amador 67 year old male was evaluated at bedside for right foot chronic ulceration. Patient is AAOx3 and appears in no acute distress. Patient denies of any pain today. No other pedal complains at this time. No recent F/N/V/C/SOB/CP/headache. Objective - Vital Signs/Intake and Output Vital Signs (last 24 hours): Temp Pulse Resp BP Pulse Ox 98.0 F 92 H 20 143/83 96 05/19/18 07:00 05/19/18 07:00 05/19/18 07:00 05/19/18 07:00 05/19/18 07:00 - Labs Labs: 05/19/18 07:02 05/19/18 07:02 - Constitutional Appears: Well, Non-toxic, No Acute Distress - Extremities Exam Additional comments: VASC: DP pulses are faintly palpable, PT pulses are 1/4, Cap refill time: < 3 sec to all digits, Temp gradient: warm to cool from proximal to distal on the left and warm to warm on the left, no pitting or non-pitting edema noted DERM: 2 small open lesions measuring approx 0.7 cm x 0.3 cm x 0.1 cm on the anterior medial aspect of the right ankle superior to anterior tibial tendon, wound base is necro-grannular, no active drainage, no malodor, no tunneling, no undermining, diffuse erythema noted on the right foot which appears to be resol ving, superficial hallux epidermal shedding with superficial bleeding NEURO: Protective sensation grossly intact ORTHO: MMT: 5/5 in all 4 direction, no pain on palpation of the wound on the right foot - Neurological Exam Neurological Exam: Alert, Awake, Oriented x3 - Psychiatric Exam Psychiatric exam: Normal Affect, Normal Mood Assessment and Plan - Assessment and Plan (Free Text) Assessment: 67 year old male was evaluated for right foot chronic ulceration Plan: Patient seen and evaluated Discussed plan with attending Dr. Perry VINES, No leukocytosis Right foot cultures taken - Coag negative staph Continue abx as per ID Foot x-rays ordered - no signs of acute OM; no signs of soft tissue emphysema KAITY/PVR ordered - non-conclusive due to calcified vessels Wound cleaned and dressing applied using medihoney, DSD No plan for surgical intervention at this time Stable from podiatry standpoint Upon discharge, please follow up with Dr. Lipscomb (his engineering specialist) as an outpatient basis Podiatry to follow patient while in-house
--- NOTE | 2018-05-22 09:22 | EEG ---
DATE: This is a 16-channel electroencephalogram of awake and drowsy adult. During the study, photic stimulation was performed. Hyperventilation was not performed. The resting electroencephalogram shows 20 to 30 microvolt diffuse 6 to 7 Hz, theta activities seen at bilateral parietal and occipital leads, superior intermittent movement artifact contaminate the frontal as well as central leads. This activity is somewhat well organized to form 9 to 11 Hz alpha activities consistent with normal cerebral activities during awake. The photic stimulation did not evoke driving response noted at 2 to 20 Hz. An EKG shows some bundle-branch block also noted. IMPRESSION: This is a normal electroencephalogram of awake and drowsy adult. During the study, neither electroencephalographic paroxysmal activities nor focal slowing noted. Doc García MD
== END 2018-05-19 16:20 | DRG 312 ==
LOC: C.ER 11:43 → C.9E 14:14 → C.6T 14:33 → C.9E 14:47 → OBSVTOIN 05-17 14:47
PROVIDERS: ADMIT Internal Medicine Nephrology; ATTEND Internal Medicine Nephrology
DX: R55 Syncope and collapse (principal); E11.621 Type 2 diabetes mellitus with foot ulcer; L97.519 Non-pressure chronic ulcer of other part of right foot with unspecified severity; E86.0 Dehydration; E11.42 Type 2 diabetes mellitus with diabetic polyneuropathy; E11.22 Type 2 diabetes mellitus with diabetic chronic kidney disease; H54.8 Legal blindness, as defined in USA; I12.9 Hypertensive chronic kidney disease with stage 1 through stage 4 chronic kidney disease, or unspecified chronic kidney disease; J44.9 Chronic obstructive pulmonary disease, unspecified; N18.9 Chronic kidney disease, unspecified; N40.0 Benign prostatic hyperplasia without lower urinary tract symptoms; Z87.891 Personal history of nicotine dependence; F32.9 Major depressive disorder, single episode, unspecified; F41.9 Anxiety disorder, unspecified; B95.8 Unspecified staphylococcus as the cause of diseases classified elsewhere